=== PATIENT | male | born 1940 | race Caucasian/White ===

== ENCOUNTER 2018-12-29 18:41 | Emergency (ER) | payer OTHER ==
[~2018-12-29] VITALS: Ht 182.9 cm; Wt 74.8 kg
[2018-12-29 18:55] VITALS: Ht 182.9 cm; Wt 74.8 kg
[2018-12-30 00:49] VITALS: BP 152/75
== END 2018-12-30 07:25 | disposition home or self-care (01) ==
LOC: EDBD 18:41 → ED 18:41
DX: M25.512 Pain in left shoulder (principal); S20.219A Contusion of unspecified front wall of thorax, initial encounter; Y04.0XXA Assault by unarmed brawl or fight, initial encounter; Y93.89 Activity, other specified; Y92.89 Other specified places as the place of occurrence of the external cause; Y99.8 Other external cause status